=== PATIENT | female | born 1995 | race Caucasian/White ===

== ENCOUNTER 2020-07-10 14:47 | Outpatient (CLI) | payer OTHER | END 2020-07-10 14:48 | disposition home or self-care (01) | LOC: COV 14:47 | PROVIDERS: ATTEND Family Medicine | DX: R50.9 Fever, unspecified (principal); R05 Cough; J02.9 Acute pharyngitis, unspecified; R11.0 Nausea; Z20.828 Contact with and (suspected) exposure to other viral communicable diseases ==